=== PATIENT | female | born 1995 | race Caucasian/White ===

== ENCOUNTER → 2018-01-04 16:28 | Outpatient (CLI) | payer MEDICAID, SELFPAY ==
[2018-01-04 19:54] LABS: Chlamydia Trachomatis by PCR Negative (Negative); Neisserai gonorrhoeae by PCR Negative (Negative); Probe Check PASS; Sample Adequacy Control PASS; Specimen Processing Control PASS
[2018-01-08 14:14] LABS: HPV Reflexed? NOT INDICATED
== END ==
PROVIDERS: Visit Provider Obstetrics & Gynecology
DX: Z12.4 Encounter for screening for malignant neoplasm of cervix (principal); Z11.3 Encounter for screening for infections with a predominantly sexual mode of transmission
CPT/HCPCS: 87491; 87591; 88175; G0145

== ENCOUNTER → 2019-12-26 14:24 | Outpatient (CLI) | payer MEDICAID, SELFPAY ==
[2017-03-19 23:46] VITALS: BMI 45.6
[2019-12-26 16:08] LABS: Absolute Lymphocyte Count 3.28 X10^3/uL (0.83-4.51); Absolute Neutrophil Count 9.9 X10^3/uL (2.0-7.7); Basophil# 0.02 X10^3/uL; Basophil% 0.1 % (0-1); Eosinophil# 0.11 X10^3/uL; Eosinophils% 0.8 % (0-5); Hematocrit 35.9 % (37-47); Hemoglobin 12.3 g/dL (12.0-15.0); Lymphocyte # 3.28 X10^3/ul (4.0); Lymphocyte % 22.8 % (19-41); Mean Corp Hgb Conc 34.3 g/dL (32-36); Mean Corpuscular Hgb 28.7 pg (27.0-32.0); Mean Corpuscular Volume 83.7 fL (81-99); Mean Platelet Vol. 11.4 fl (6.2-12.0); Monocyte# 0.97 X10^3/uL; Monocyte% 6.8 % (0-10); NRBC Flagged by Analyzer 0 % (0-5); Neutrophil # 9.92 X10^3/uL (2.7-7.7); Platelet Count 244 K/mm3 (150-450); RBC Distribution Width CV 14.6 % (11.6-14.6); RBC Distribution Width SD 42.6 fl (35.1-43.9); Red Blood Count 4.29 M/mm3 (4.2-5.4); White Blood Count 14.4 K/mm3 (4.4-11.0)
[2019-12-26 16:27] LABS: Color, Urine Yellow (Yellow); Glucose, Dipstick Normal (Normal); Ketone-Dipstick 5 mg/dl (Negative); Leukocyte Esterase-Dipstick Negative /ul (Negative); Nitrite-Dipstick Negative (Negative); Occult Blood-Urine Negative /ul (Negative); Protein-Dipstick 15 mg/dl (Negative); Specific Gravity, Urine 1.025 (1.002-1.030); Urine Bilirubin Dipstick Negative (Negative); Urine Clarity Sl. Cloudy (Clear); Urine Urobilinogen 1 mg/dl (Normal)
[2019-12-26 16:49] LABS: ALB/GLOB Ratio 0.8 RATIO (0.9-2.4); AST(SGOT) 10 U/L (15-37); Alanine Aminotransfer ALT/SGPT 22 U/L (13-56); Albumin, Serum 3.3 g/dL (3.2-5.0); Alkaline Phosphatase 57 U/L (45-117); Anion Gap 5 (5-15); BUN 7 mg/dL (7-18); BUN/Creat Ratio 12.5 RATIO (10-20); Calcium,Total 9.1 mg/dL (8.5-10.1); Chloride 109 mmol/L (98-107); Creatinine, Serum 0.56 mg/dL (0.55-1.02); EST Glomerular Filtration Rate 141 mL/min (>60); Est Glom Filt Rate - Afr Amer 171 mL/min (>60); Globulin 4.4 g/dL (2.2-4.2); Glucose 96 mg/dL (74-106); LDH 115 U/L (84-246); Potassium 3.9 mmol/L (3.5-5.1); Protein, Total 7.7 g/dL (6.4-8.2); Sodium Level 136 mmol/L (136-145)
[2019-12-26 16:53] LABS: Protein, Urine (Random) 13.3 mg/dL (<11.9); Protein:Creat Ratio 74 mg/g CRE (0-200)
[2019-12-26 17:25] LABS: HIV - WCH Non-Reactive (Nonreactive); Hepatitis B Surface Antigen Non-Reactive (Nonreactive); Hepatitis C Antibody Non-Reactive (Nonreactive); Rubella IgG 18.3 IU/mL
[2019-12-28 06:28] LABS: Prenatal RPR NONREACTIVE (NONREACTIVE)
[2019-12-29 03:07] LABS: Chlamydia By Nucleic Acid AMP Negative (Negative)
[2019-12-29 04:20] LABS: Gonococcus By Nucleic Acid AMP Negative (Negative)
[2019-12-29 14:25] LABS: HPV Reflexed? NOT INDICATED
== END ==
PROVIDERS: PCP Family Medicine; Visit Provider Obstetrics & Gynecology
DX: Z34.81 Encounter for supervision of other normal pregnancy, first trimester (principal)
CPT/HCPCS: 36415; 80053; 81002; 82570; 83615; 84156; 85025; 86703; 86762; 86803; 87340; 87491; 87591; 88175; G0145

== ENCOUNTER → 2020-02-29 16:02 | Outpatient (CLI) | payer MEDICAID, SELFPAY ==
[2017-03-19 23:46] VITALS: BMI 45.6
[2020-02-29 17:37] LABS: Glucose Challenge Gest 1H 50g 97 mg/dL (70-140)
[2020-02-29 17:39] LABS: Hematocrit 34.6 % (37-47); Hemoglobin 11.2 g/dL (12.0-15.0); Mean Corp Hgb Conc 32.4 g/dL (32-36); Mean Corpuscular Hgb 27.8 pg (27.0-32.0); Mean Corpuscular Volume 85.9 fL (81-99); Mean Platelet Vol. 11.5 fl (6.2-12.0); Platelet Count 285 K/mm3 (150-450); RBC Distribution Width CV 14.8 % (11.6-14.6); RBC Distribution Width SD 46.5 fl (35.1-43.9); Red Blood Count 4.03 M/mm3 (4.2-5.4); White Blood Count 13.5 K/mm3 (4.4-11.0)
== END ==
PROVIDERS: PCP Family Medicine; Visit Provider Obstetrics & Gynecology
DX: O99.212 Obesity complicating pregnancy, second trimester (principal); E66.9 Obesity, unspecified; Z3A.00 Weeks of gestation of pregnancy not specified
CPT/HCPCS: 36415; 82950; 85027

== ENCOUNTER → 2020-05-23 | Outpatient (CLI) | payer MEDICAID, SELFPAY ==
[2017-03-19 23:46] VITALS: BMI 45.6
== END | disposition home or self-care (01) ==
PROVIDERS: Visit Provider Obstetrics & Gynecology
DX: Z36.85 Encounter for antenatal screening for Streptococcus B (principal)
CPT/HCPCS: 87077; 87081; 87186

== ENCOUNTER 2020-06-04 07:25 | Inpatient (IN) | payer MEDICAID, SELFPAY ==
[2017-03-19 23:46] VITALS: BMI 45.6
[2020-06-04] VITALS (23 sets, daily range): BP systolic 116–137; BP diastolic 59–86; PULSE 77–100; RESP 16–18; TEMP 36.1–37.6; O2SAT 96–100; BMI 57.4
[2020-06-04] MEDS: Lactated Ringers 1,000 ML 50 ML IV ×2 (08:20→17:58)
[2020-06-04 08:44] LABS: Absolute Lymphocyte Count 3.12 X10^3/uL (0.83-4.51); Absolute Neutrophil Count 8.5 X10^3/uL (2.0-7.7); Basophil# 0.03 X10^3/uL; Basophil% 0.2 % (0-1); Eosinophil# 0.11 X10^3/uL; Eosinophils% 0.9 % (0-5); Hematocrit 37.7 % (37-47); Hemoglobin 12.5 g/dL (12.0-15.0); Lymphocyte # 3.12 X10^3/ul (4.0); Lymphocyte % 24.8 % (19-41); Mean Corp Hgb Conc 33.2 g/dL (32-36); Mean Corpuscular Hgb 27.3 pg (27.0-32.0); Mean Corpuscular Volume 82.3 fL (81-99); Mean Platelet Vol. 10.7 fl (6.2-12.0); Monocyte# 0.81 X10^3/uL; Monocyte% 6.4 % (0-10); NRBC Flagged by Analyzer 0 % (0-5); Neutrophil # 8.47 X10^3/uL (2.7-7.7); Neutrophil % 67.4 % (47-70); Platelet Count 296 K/mm3 (150-450); RBC Distribution Width CV 15.3 % (11.6-14.6); RBC Distribution Width SD 46.3 fl (35.1-43.9); Red Blood Count 4.58 M/mm3 (4.2-5.4); White Blood Count 12.6 K/mm3 (4.4-11.0)
--- NOTE | 2020-06-04 09:22 | PCM.HPOB.BLA ---
History and Physical Chief complaint: Induction of labor chronic hypertension History of present illness: 24-year-old G1, P0 at 30 weeks and 4 days with [facility]: 06/14/2019 1 x 16-week ultrasound arrives for induction of labor for chronic hypertension. Denies headache, chest pain, shortness of breath, nausea vomiting, visual changes, right upper quadrant pain. Patient states good movement. is complicated by chronic hypertension on no meds, smoker, FOB with muscular dystrophy FOB's daughter with clubfoot, IUGR at [place] 2683 g less than 10th percentile HC 5.3% AC 12.2% but MFM ultrasound AGA, asthma, GBS positive Obstetric history: G1: Current Past medical history: Anxiety, asthma, chronic hypertension Medications: vitamin, aspirin Allergies: Latex, Delsym, Mucinex Past surgical history: None Social history: Smoker, denies alcohol, THC use Family history: Denies history of DVT or PE Review of systems: Besides the above pertinent positive a full review of systems is negative Physical exam: Vital Signs Temp Pulse BP 06/04/20 09:12 100 117/69 06/04/20 08:16 98.2 F 06/04/20 08:09 99.7 F H 99 128/74 H 06/04/20 08:02 99.3 F H General: Normal-appearing no acute distress HEENT: Normocephalic atraumatic no cervical of adenopathy Cardiac: Regular rate and rhythm no murmurs rubs or gallops Respiratory: Clear to auscultation bilaterally no wheeze rales or crackles Abdomen: Soft, nontender, gravid Pelvic exam: Closed cervix on last cervical exam Bedside ultrasound: Cephalic presentation Extremities: No peripheral edema normal peripheral pulses Psych: Normal affect normal demeanor nonpressured speech Mom's Microbiology 06/04/20 08:20 Mucosa - Nose SARS-CoV-2 Antigen (Rapid) - Final Mom's Labs & Results 06/04/20 06/04/20 08:30 08:30 WBC 12.6 H RBC 4.58 Hgb 12.5 Hct 37.7 MCV 82.3 MCH 27.3 MCHC 33.2 RDW Std Deviation 46.3 H RDW Coeff of Phoebe 15.3 H Plt Count 296 MPV 10.7 Immature Gran % (Auto) 0.300 Neut % (Auto) 67.4 Lymph % (Auto) 24.8 [place] % (Auto) 6.4 Eos % (Auto) 0.9 Baso % (Auto) 0.2 Absolute Neuts (auto) 8.5 H Absolute Lymphs (auto) 3.12 Nucleated RBC % 0 Blood Type Pending Antibody Screen Pending Labs Blood Type: O RH: POSITIVE RPR/VDRL/Syphilis Nonreactive HbSAg Negative Date Done: 12/26/19 Chlamydia Negative Gonorrhea Negative HIV/AIDS Non-Reactive Group B Strep: Positive Assessment plan: Is a 24-year-old G1, P0 at 30 weeks and 4 days for induction of labor via Cytotec for chronic hypertension -[facility] -Cytotec 25 mcg PV -GBS positive start penicillin at time of rupture or cervical dilation greater than 6 cm -Anesthesia to see -Routine orders
[2020-06-04] MEDS: miSOPROStol 25 MCG TABLET VAGINAL (09:51)
[2020-06-04 10:17] LABS: Amphetamine Urine VISTA NEGATIVE (<1000 ng/mL); Barbiturate Urine VISTA NEGATIVE (< 200 ng/mL); Benzodiazepine Urine VISTA NEGATIVE (< 200 ng/mL); Cocaine Urine VISTA NEGATIVE (< 300 ng/mL); Ecstacy Urine VISTA NEGATIVE (< 500 ng/mL); Methadone Urine VISTA NEGATIVE (< 300 ng/mL); PCP Urine VISTA NEGATIVE (< 25 ng/mL); THC Urine VISTA NEGATIVE (< 50 ng/mL); Vista UDS pH Range 5
[2020-06-04] MEDS: Lactated Ringers 500 ML 999 ML IV (15:43)
--- NOTE | 2020-06-04 17:56 | PN.OBGYN_ITS ---
Subjective: Patient with back pain uncomfortable in bed. Feeling very anxious and discouraged with difficulty monitoring baby and lack of progression with dila tion. - Physical Exam Vitals/I&O's: Vital Signs Temp Pulse BP Pulse Ox 97.9 F 93 137/82 H 99 06/04/20 17:02 06/04/20 17:02 06/04/20 17:02 06/04/20 13:32 Weight: 377 lb 6.4 oz Body Mass Index (BMI) 57.4 General: Alert, Oriented x3, Cooperative, No apparent distress HEENT: Atraumatic, PERRLA, Normocephalic Oral: Moist Mucosa Neck: Supple Abdomen: Soft, Non Tender Extremities: No clubbing, No cyanosis Neurological: Neuro grossly intact Psych/Mental Status: Normal Affect, Appropriate, Alert and oriented to time, place, person, mood and affect Microbiology Past 72 Hours 06/04/20 08:20 Mucosa - Nose SARS-CoV-2 Antigen (Rapid) - Final Laboratory Results 06/04/20 08:30: WBC 12.6 H, RBC 4.58, Hgb 12.5, Hct 37.7, MCV 82.3, MCH 27.3, MCHC 33.2, RDW Std Deviation 46.3 H, RDW Coeff of Phoebe 15.3 H, Plt Count 296, MPV 10.7, Immature Gran % (Auto) 0.300, Neut % (Auto) 67.4, Lymph % (Auto) 24.8, [place] % (Auto) 6.4, Eos % (Auto) 0.9, Baso % (Auto) 0.2, Absolute Neuts (auto) 8.5 H, Absolute Lymphs (auto) 3.12, Nucleated RBC % 0 06/04/20 08:30: Blood Type O POSITIVE, Antibody Screen NEGATIVE 06/04/20 09:00: Urine Opiates Screen NEGATIVE, Urine Methadone Screen NEGATIVE, Ur Barbiturates Screen NEGATIVE, Ur Phencyclidine Scrn NEGATIVE, Ur Amphetamines Screen NEGATIVE, U Methamphetamin-MDMA NEGATIVE, U Benzodiazepines Scrn NEGATIVE, Urine Cocaine Screen NEGATIVE, U Cannabinoids Screen NEGATIVE, Ur Drug Screen Comment Current Medications Acetaminophen (Acetaminophen 500 Mg Tablet) 500 - 1,000 mg PO Q6H PRN PRN PRN Reason: Pain Score 1-3 Al Hydroxide/Mg Hydroxide (Mag Hydrox/Al Hydrox/Simeth 30 Ml Udc) 15 - 30 ml PO Q4H PRN PRN PRN Reason: INDIGESTION Citric Acid/Sodium Citrate (Sodium Citrate/Citric Acid 30 Ml Udc) 30 ml PO X1 PRN PRN Reason: Section Fentanyl Citrate (Fentanyl 100 Mcg/2 Ml Ampul) 25 - 50 mcg IV Q2H PRN PRN PRN Reason: Pain Score 4-10 Lactated Ringer's () 500 mls @ 999 mls/hr IV .Q31M PRN PRN Reason: Epidural Last Admin: 06/04/20 15:43 Dose: 999 mls/hr Documented by: Lactated Ringer's () 500 mls @ 999 mls/hr IV .Q31M PRN PRN Reason: Corrective Measures Lactated Ringer's () 1,000 mls @ 50 mls/hr IV .Q20H [facility] Last Admin: 06/04/20 08:20 Dose: 50 mls/hr Documented by: Penicillin G Potassium 5 mu/ (Sodium Chloride) 105 mls @ 150 mls/hr IV X1 ONE Stop: 06/04/20 09:51 Penicillin G Potassium/Dextrose (Penicillin G Potassium) 3 mu in 50 mls @ 100 mls/hr IV Q4H [facility] Misoprostol (Misoprostol 50 Mcg Tablet) 50 mcg VAGINAL Q6H [facility] Last Admin: 06/04/20 14:00 Dose: Not Given Documented by: Nystatin (Nystatin Powder 15gm Bottle) 1 applic TOPICAL BID RUBEN; Protocol Ondansetron HCl (Ondansetron 4 Mg/2 Ml Vial) 4 mg IV Q4H PRN PRN PRN Reason: NAUSEA Prochlorperazine Edisylate (Prochlorperazine 10 Mg/2 Ml Vial) 10 mg IV Q6H PRN PRN PRN Reason: NAUSEA Sodium Chloride (0.9% Saline Lock 10 Ml Syringe) 10 - 40 ml IV X1 PRN PRN Reason: SALINE FLUSH Medical Necessity - Tobacco Use Smoking Status: Light Smoker (<10/day) Assessment/Plan Seen and examined. Since arrival difficulty with external monitoring. Overall category 1 tracing. Status post 1 dose of vaginal Cytotec. Cervical exam currently closed thick and high. Based on cervical exam Santos bulb not possible. Therefore cannot place scalp electrode. Would need to continue with Pitocin or Cytotec induction. Based on these findings discussed with patient at length about induction options and need to have monitoring. Patient states understanding overall with back discomfort overall psychological emotional stress of not being able to monitor the baby and her not being able to get sleep or rest from all the manipulation from external monitors patient elects for primary section. Educated on high risk for surgical site infection and DVT. Patient states understanding. Discussed risk benefits alternatives. Patient understands the risk of the procedure include but are not limited to visceral or vascular injury, prolonged hospitalization, blood loss need for transfusion, reoperation. Patient understand and wish proceed. All questions answered consent was signed. Overall patient is a medically indicated induction therefore home-going is not an option. Understand patient's request and patient also appears to understand the risks of the procedure. We will proceed with primary section. 3 g of Ancef to be given. Anesthesia to see
[2020-06-04] MEDS: Acetaminophen 500 MG Tablet PO (19:00)
--- NOTE | 2020-06-04 21:52 | PCM.OPRPT ---
Delivery military police officer: Alexus Brown Date of Procedure: 06/04/20 Pre-Operative Diagnosis: Elective Post-Operative Diagnosis: Elective Description of Procedure: Surgeon: Benjamin Fischer MD Anesthesia: Spinal EBL: 600 cc IV fluids: 500 cc Urine output: 200 cc Complications: None Specimen: None Findings: Male in vertex position. Apgars 8/9. Normal uterus, tubes, and ovaries Consent: Patient arrived for induction of labor with chronic hypertension, given Cytotec x1. As noted in decision to incision note previously made difficulty with external monitoring patient with anxiety and exhaustion and after risk benefits alternatives discussion elected for primary section. Patient understood the risk of the procedure include but are not limited to visceral or vascular injury, prolonged hospitalization, blood loss need for transfusion, reoperation. Patient state understanding and wished to proceed. All questions were answered consent was signed Procedure: Patient was brought back to the OR where spinal anesthesia found to be adequate. 3 g of Ancef were given for infection prophylaxis. Patient was prepared and draped in dorsal supine position with leftward tilt. A Pfannenstiel incision was made at the skin with a scalpel. The incision was carried down to the fascia with a scalpel. The fascia was excised and extended laterally. Inferior aspect of the fascia was grasped with a clamp and the underlying rectus and pyramidalis muscle dissected off sharply with Vigil scissors. In a similar fashion superior aspect was grasped with a clamp and the underlying rectus muscle dissected off sharply. Rectus muscle was dissected at the midline. Peritoneum was entered bluntly. Peritoneum was extended superiorly and inferiorly with good visualization of bladder. Bladder blade was inserted and vesicouterine peritoneum was identified. Low transverse hysterotomy incision was made. Extended laterally. Hand was placed into the hysterotomy and gentle fundal pressure was applied once the head was brought into the incision and the bladder blade was removed. Head and shoulders were delivered with ease. Cord was cut and clamped baby was handed off to nursing. Placenta was delivered via manual extraction. Uterus was exteriorized and wiped out with dry laparotomy sponge in order to remove remaining placental membranes. IV oxytocin was initiated in order to facilitate uterine contractions. Uterus was closed in a continuous running locked fashion. Second layer was performed. Good hemostasis was noted. Uterus placed back into the abdominal cavity. Incision was reinspected and good hemostasis was noted. Fascia was closed in continuous running fashion. Skin was closed in a subcuticular fashion. All counts were correct x2. Patient tolerated the procedure well was brought to recovery in stable condition.
--- NOTE | 2020-06-04 21:59 | DCINST_ITS ---
Discharge Diet: No Restrictions Discharge Activity: May Drive, May Shower, - - No tub baths for 2 weeks May resume sexual activity in: 6 weeks Lifting Restrictions: No lifting over 25 pounds for 3 weeks Call your doctor if your incision/area has: Foul Smelling Discharge Call your doctor if you observe: Fever of 101 or Higher, Shortness of breath, Chest pain Additional Instructions: If you experience any of the following, contact your healthcare provider. * Bleeding that soaks a pad every hour for 2 hours * Fever 100.4 or higher * Unrelieved incision or abdominal pain * Swelling, redness, discharge or bleeding from your incision or episiotomy site * Your incision begins to separate * Problems urinating (including inability to urinate or burning while urinating). * Visual changes * Severe headache * Flu-like symptoms * Pain or redness in one of both of your breasts * Pain, warmth, tenderness or swelling in your legs, especially the calf area * Frequent nausea and vomiting * Symptoms of depression or anxiety If you experience any of the following, call 911 or go to the nearest Emergency Room. * Chest pain * Problems breathing * Seizure activity * Partial or complete paralysis of a body part, slurred speech, weakness or drooping of the face, or a sudden inability to walk or hold your balance Allergies/Adverse Reactions: Allergies dextromethorphan [From Delsym] Allergy (Verified 03/19/17 23:48) HEADACHE HEART RACES AND THROWS ME INTO A PANIC ATTACK guaifenesin [From Mucinex] Allergy (Verified 03/19/17 23:48) Angioedema latex Allergy (Verified 03/19/17 23:48) Rash Medications to take at Discharge Albuterol Inhaler 2 puff INHALATION Q8H PRN PRN 06/04/20 Vit No.130/Iron/Folic [ Tablet] 1 ea PO DAILY 06/04/20 Hydrocodone Bitart/Apap 5-325 [[place] 5MG-325MG] 1 tablet PO Q6H PRN PRN 3 Days #12 tablet 06/06/20 The following prescriptions were given: Hydrocodone Bitart/Apap 5-325 [[place] 5MG-325MG] 1 tablet PO Q6H PRN PRN 3 Days #12 tablet PRN Reason: Pain Score 6-10 Transmission Status: Received by [facility] Follow-Up: Call to make an appointment with your doctor for an incision check in 1-2 weeks. You will also need a 6 week post- follow up appointment. Test results from this visit will be discussed in further detail at your follow- up appointment, if applicable. Please Follow Up With: Benjamin Fischer MD When: 2 weeks Primary Care Physician: Care Physician,No Primary [Primary Care Provider] -
[2020-06-04] MEDS: Oxytocin 30 units/NS 500 ml 30 UNITS/500 ML IV.SOLN 167 UNITS IV (22:00)
[2020-06-05] VITALS (8 sets, daily range): BP systolic 113–146; BP diastolic 71–94; PULSE 81–98; RESP 16–20; TEMP 36.1–36.6; O2SAT 96–99
[2020-06-05] MEDS: Lactated Ringers 1,000 ML 100 ML IV (00:26)
[2020-06-05] MEDS: Acetaminophen 500 MG Tablet 1000 MG PO ×4 (01:21→19:21)
[2020-06-05] MEDS: Nystatin Powder 15gm Bottle 1 APPLIC TOPICAL ×3 (03:04→21:37)
[2020-06-05] MEDS: 0.9% Saline Lock 10 ML Syringe IV ×4 (03:39→15:18)
[2020-06-05] MEDS: Ketorolac 30 MG/ML Syringe IV ×4 (03:39→20:47)
[2020-06-05 05:03] LABS: Hematocrit 34.5 % (37-47); Hemoglobin 11.3 g/dL (12.0-15.0); Mean Corp Hgb Conc 32.8 g/dL (32-36); Mean Corpuscular Hgb 27.8 pg (27.0-32.0); Mean Corpuscular Volume 84.8 fL (81-99); Mean Platelet Vol. 10.4 fl (6.2-12.0); Platelet Count 253 K/mm3 (150-450); RBC Distribution Width CV 15.3 % (11.6-14.6); RBC Distribution Width SD 46.9 fl (35.1-43.9); Red Blood Count 4.07 M/mm3 (4.2-5.4); White Blood Count 14.8 K/mm3 (4.4-11.0)
--- NOTE | 2020-06-05 08:42 | PN.OBGYN_ITS ---
Subjective: No issues overnight. She is sore, but pain controlled. OOB to chair. Denies nausea, vomiting, fever, chills, headache, vision changes, chest pain or shortness of breath. Denies heavy lochia. Passing flatus. Tolerates CLD. Objective: avss - Physical Exam Vitals/I&O's: Vital Signs Temp Pulse Resp BP Pulse Ox 97.1 F L 91 16 113/71 96 06/05/20 08:13 06/05/20 08:13 06/05/20 08:13 06/05/20 08:13 06/05/20 08:13 Oxygen Delivery Method Room Air Weight: 171.186 kg Body Mass Index (BMI) 57.4 Intake and Output for Last 24 Hours 06/03/20 06/04/20 06/05/20 23:59 23:59 23:59 Intake Total 1235.84 / 1235.84 879.70 / 879.70 Output Total 400 / 400 375 / 375 Balance 835.84 / 835.84 504.70 / 504.70 General: Alert, Oriented x3, Cooperative, No apparent distress HEENT: Atraumatic, Normocephalic Lungs: Clear to auscultation, Normal air movement Cardiovascular: Regular rate, Regular Rhythm, Normal S1, Normal S2 Abdomen: Soft, Non Tender, Non-Distended, - - Fundus firm and nontender, lochia scant, incisional dressing c/d/i Extremities: No edema, No Calf Tenderness Neurological: Neuro grossly intact Psych/Mental Status: Normal Affect, Appropriate, Alert and oriented to time, place, person, mood and affect Microbiology Past 72 Hours 06/04/20 08:20 Mucosa - Nose SARS-CoV-2 Antigen (Rapid) - Final Laboratory Results 06/04/20 08:30: WBC 12.6 H, RBC 4.58, Hgb 12.5, Hct 37.7, MCV 82.3, MCH 27.3, MCHC 33.2, RDW Std Deviation 46.3 H, RDW Coeff of Phoebe 15.3 H, Plt Count 296, MPV 10.7, Immature Gran % (Auto) 0.300, Neut % (Auto) 67.4, Lymph % (Auto) 24.8, [place] % (Auto) 6.4, Eos % (Auto) 0.9, Baso % (Auto) 0.2, Absolute Neuts (auto) 8.5 H, Absolute Lymphs (auto) 3.12, Nucleated RBC % 0 06/04/20 08:30: Blood Type O POSITIVE, Antibody Screen NEGATIVE 06/04/20 09:00: Urine Opiates Screen NEGATIVE, Urine Methadone Screen NEGATIVE, Ur Barbiturates Screen NEGATIVE, Ur Phencyclidine Scrn NEGATIVE, Ur Amphetamines Screen NEGATIVE, U Methamphetamin-MDMA NEGATIVE, U Benzodiazepines Scrn NEGATIVE, Urine Cocaine Screen NEGATIVE, U Cannabinoids Screen NEGATIVE, Ur Drug Screen Comment 06/05/20 04:48: WBC 14.8 H, RBC 4.07 L, Hgb 11.3 L, Hct 34.5 L, MCV 84.8, MCH 27.8, MCHC 32.8, RDW Std Deviation 46.9 H, RDW Coeff of Phoebe 15.3 H, Plt Count 253, MPV 10.4 Current Medications Acetaminophen (Acetaminophen 500 Mg Tablet) 1,000 mg PO Q6H [facility] Last Admin: 06/05/20 06:37 Dose: 1,000 mg Documented by: Albuterol Sulfate (Albuterol 2.5 Mg/3 Ml Vial.Neb.) 2.5 mg INHALATION Q4H PRN PRN PRN Reason: Asthma Bisacodyl (Bisacodyl 10 Mg Suppository) 10 mg RC UD PRN PRN Reason: If no BM Enoxaparin Sodium (Enoxaparin 40 Mg/0.4 Ml Syringe) 40 mg SC DAILY [facility] Hydrocortisone (Hydrocortisone 2.5% Crm) 1 applic TOPICAL TID PRN PRN; Protocol PRN Reason: Discomfort Cefazolin Sodium 3 gm/ Sodium (Chloride) 115 mls @ 150 mls/hr IV Q8H [facility] Stop: 06/06/20 21:00 Last Infusion: 06/05/20 04:48 Dose: Infused Documented by: Lactated Ringer's () 1,000 mls @ 100 mls/hr IV .Q10H [facility] Last Infusion: 06/05/20 04:48 Dose: 100 mls/hr Documented by: Ibuprofen (Ibuprofen 600 Mg Tablet) 600 mg PO Q6H [facility] Ketorolac Tromethamine (Ketorolac 30 Mg/Ml Syringe) 30 mg IV Q6H [facility] Stop: 06/05/20 21:01 Last Admin: 06/05/20 03:39 Dose: 30 mg Documented by: Nystatin (Nystatin Powder 15gm Bottle) 1 applic TOPICAL BID [facility]; Protocol Last Admin: 06/05/20 03:04 Dose: 1 applic Documented by: Ondansetron HCl (Ondansetron 4 Mg/2 Ml Vial) 4 mg IV Q4H PRN PRN PRN Reason: Nausea Oxycodone HCl (Oxycodone 5 Mg Tablet) 5 - 10 mg PO Q4H PRN PRN PRN Reason: Pain Score 4-10 Multivit/Folic Acid/Iron ( Vits Tablet) 1 tablet PO DAILY [facility] Prochlorperazine Edisylate (Prochlorperazine 10 Mg/2 Ml Vial) 10 mg IV Q6H PRN PRN PRN Reason: NAUSEA Senna/Docusate Sodium (Senna/Docusate Sodium 1 Tablet) 1 - 2 tablet PO DAILY [facility] Simethicone (Simethicone 80 Mg Tablet) 80 mg PO PCHS PRN PRN Reason: Indigestion/stomach pain Sodium Chloride (0.9% Saline Lock 10 Ml Syringe) 5 - 15 ml IV UD PRN PRN Reason: SALINE FLUSH Last Admin: 06/05/20 03:39 Dose: 10 ml Documented by: Medical Necessity - Tobacco Use Smoking Status: Light Smoker (<10/day) Assessment/Plan 24yo POD# 1 s/p PLTCS hx cHTN on no medications -Rh positive -Routine postop care -Lovenox for DVT ppx
[2020-06-05] MEDS: Enoxaparin 40 MG/0.4 ML Syringe SC (11:20)
[2020-06-05] MEDS: Senna/Docusate Sodium 1 Tablet PO (11:20)
[2020-06-05] MEDS: Prenatal Vits Tablet 1 TABLET PO (11:20)
[2020-06-06 01:12] VITALS: BP 126/81; PULSE 79; RESP 16; TEMP 36.6
[2020-06-06] MEDS: Acetaminophen 500 MG Tablet 1000 MG PO ×3 (01:24→12:45)
[2020-06-06] MEDS: Ibuprofen 600 MG Tablet PO ×2 (03:08→09:17)
[2020-06-06] MEDS: 0.9% Saline Lock 10 ML Syringe IV (04:51)
[2020-06-06 08:28] VITALS: BP 120/79; PULSE 88; RESP 18; TEMP 36.3; O2SAT 97
--- NOTE | 2020-06-06 09:05 | PCM.PN.OB ---
Subjective: Complaints overnight. Pain well controlled. - Physical Exam Vitals/I&O's: Vital Signs Temp Pulse Resp BP Pulse Ox 97.4 F L 88 18 120/79 97 06/06/20 08:28 06/06/20 08:28 06/06/20 08:28 06/06/20 08:28 06/06/20 08:28 Oxygen Delivery Method Room Air Weight: 377 lb 6.4 oz Body Mass Index (BMI) 57.4 Intake and Output for Last 24 Hours 06/04/20 06/05/20 06/06/20 23:59 23:59 23:59 Intake Total 1235.84 / 1235.84 1729.70 / 1729.70 115 / 115 Output Total 400 / 400 575 / 575 Balance 835.84 / 835.84 1154.70 / 1154.70 115 / 115 General: Alert, Oriented x3, Cooperative, No apparent distress HEENT: Atraumatic, PERRLA, Normocephalic Oral: Moist Mucosa Neck: Supple, No JVD Abdomen: Soft, Non Tender, - - Bandage clean dry and intact Extremities: No clubbing, No cyanosis Neurological: Neuro grossly intact Psych/Mental Status: Normal Affect, Appropriate, Alert and oriented to time, place, person, mood and affect Microbiology Past 72 Hours 06/04/20 08:20 Mucosa - Nose SARS-CoV-2 Antigen (Rapid) - Final Current Medications Acetaminophen (Acetaminophen 500 Mg Tablet) 1,000 mg PO Q6H [facility] Last Admin: 06/06/20 06:56 Dose: 1,000 mg Documented by: Albuterol Sulfate (Albuterol 2.5 Mg/3 Ml Vial.Neb.) 2.5 mg INHALATION Q4H PRN PRN PRN Reason: Asthma Bisacodyl (Bisacodyl 10 Mg Suppository) 10 mg RC UD PRN PRN Reason: If no BM Enoxaparin Sodium (Enoxaparin 40 Mg/0.4 Ml Syringe) 40 mg SC DAILY [facility] Last Admin: 06/05/20 11:20 Dose: 40 mg Documented by: Hydrocortisone (Hydrocortisone 2.5% Crm) 1 applic TOPICAL TID PRN PRN; Protocol PRN Reason: Discomfort Ibuprofen (Ibuprofen 600 Mg Tablet) 600 mg PO Q6H [facility] Last Admin: 06/06/20 03:08 Dose: 600 mg Documented by: Nystatin (Nystatin Powder 15gm Bottle) 1 applic TOPICAL BID [facility]; Protocol Last Admin: 06/05/20 21:37 Dose: 1 applic Documented by: Ondansetron HCl (Ondansetron 4 Mg/2 Ml Vial) 4 mg IV Q4H PRN PRN PRN Reason: Nausea Oxycodone HCl (Oxycodone 5 Mg Tablet) 5 - 10 mg PO Q4H PRN PRN PRN Reason: Pain Score 4-10 Multivit/Folic Acid/Iron ( Vits Tablet) 1 tablet PO DAILY [facility] Last Admin: 06/05/20 11:20 Dose: 1 tablet Documented by: Prochlorperazine Edisylate (Prochlorperazine 10 Mg/2 Ml Vial) 10 mg IV Q6H PRN PRN PRN Reason: NAUSEA Senna/Docusate Sodium (Senna/Docusate Sodium 1 Tablet) 1 - 2 tablet PO DAILY [facility] Last Admin: 06/05/20 11:20 Dose: 1 tablet Documented by: Simethicone (Simethicone 80 Mg Tablet) 80 mg PO PCHS PRN PRN Reason: Indigestion/stomach pain Sodium Chloride (0.9% Saline Lock 10 Ml Syringe) 5 - 15 ml IV UD PRN PRN Reason: SALINE FLUSH Last Admin: 06/06/20 04:51 Dose: 5 ml Documented by: Medical Necessity - Tobacco Use Smoking Status: Light Smoker (<10/day) Assessment/Plan Postop day 2 status post primary . Okay to discharge home today
[2020-06-06] MEDS: Enoxaparin 40 MG/0.4 ML Syringe SC (10:00)
[2020-06-06] MEDS: Prenatal Vits Tablet 1 TABLET PO (10:00)
[2020-06-06] MEDS: Nystatin Powder 15gm Bottle 1 APPLIC TOPICAL (10:02)
[2020-06-06 14:00] VITALS: BP 136/81; PULSE 83; RESP 18; TEMP 36; O2SAT 99
--- NOTE | 2020-06-06 14:30 | CASEMGMT ---
Social Work Assessment Labor and Delivery Unit Patient Address: [address] [place] [address] Phone number: [phone] Date of Referral: 06/05/2020 Time of Referral: 329 Referred By: Dr. Benjamin Fischer Date of Intervention: 06/06/2020 Time of Intervention: 9853-1383 Reason for Referral: Mental health, maternal history of bipolar disorder and anxiety. History obtained from: Medical records and mother of baby (MOB) Annalisa Wills, father of baby (FOB) Tani Morgan also present for part of conversation. Household composition: MOB reports to live with the FOB. Reports home situation is safe and adequate. Patient's parent/guardian status: MOB is a 23-year-old single female involved with the FOB who is a single 27-year-old and [place] male. Together for 4 years. During private conversation with the MOB, the MOB denies any form of abuse, control, intimidation in this relationship. baby is the first child for MOB and FOB together. FOB reports to have one other child named Jesus Alberto who is 6 years old. FOB does not see this child. MOB and FOB's baby is to be named Eric Wills, born 06.04.2019. Medical History: ANNI is 1, para 0-1 after delivering Eric. care started at 18 weeks gestation. Mckenzie delivered at 38 weeks gestation. Apgars 8 and 9 at 1 and 5 minutes of life respectively. weight was 6 pounds 10 ounces. Significant medical history for the : On the baby's paternal side of the family there is significant medical history including the FOB having muscular dystrophy, a paternal aunt with muscular dystrophy, and the half sibling born with a clubfoot and hip dysplasia. Educational Status: ANNI reportedly working on her GED. MOB reports to be able to read, write, and understand what is read. Financial Status: MOB was working at [employer] for part of the . ANNI is not currently employed. The FOB does receive disability which is the main source of income for the household. Supplies: MOB and FOB report to have needed infant supplies including a bassinet, car seat, clothing, diapers, wipes, bottles, and formula. MOB reports they have a crib they just have to go pick it up. Childcare/Caregiver(s): MOB and FOJessica plan to be the primary caregivers. Transportation: ANNI reports she relies on her father for transportation. Programs/Agencies Involved: ANNI reports to have food and medical through job and family services. Active with WIC. Reports to have counseling at the counseling center one time a week. Verbally agrees to help me grow referral. Children Services/Legal Issues: ANNI denies any legal issues for herself. The FOB reports to be a registered sex offender for 25 years. The FOB reports he served chcf time and finished his probation/parole, no longer on papers. No history reported of children services related to the MOB. Behavioral Health Issues: Mental Health History: ANNI has a history of bipolar disorder, anxiety and depression. ANNI has a history of treatment with Seroquel and gabapentin but is not currently taking any medications. ANNI prefers not to take medications. [place] depression screen completed with that MOB this date and a score was 2. ANNI denies any history of suicidal or homicidal ideation, intent, planning or action. Substance Use History: MOB reports a history of marijuana use until knowledge and then immediately quit. MOB denies any other substance use history including heroin, meth, cocaine, prescription abuse, or alcohol. MOB does smoke tobacco going from about a half a pack to 3 cigarettes a day. Family History: MOB family history not discussed. The FOB does have history of depression. JIAN reports also to have his own medical marijuana card. Drug Screens: No drug screens noted during the MOB . Maternal drug screen at time of delivery was negative on 06/04/2020. Baby's urine drug screen is negative at delivery and meconium is pending. Family/Social Stressors: MOB and FOB report that the FOB sister was murdered in April, which has been a significant stress for the entire family. JIAN's niece and nephews are now living with grandparents and [facility] children services is involved. with [facility] unplanned but accepted. Maternal mental health history, as well as JIAN's grief from the loss of his sister. Reported materanl substance use prior to knowledge. JIAN does have muscular dystrophy, and reports he has been losing the use of his legs and is mostly in a wheelchair now. Support Systems: It is reported that FOB's mom, MOB father, and aunt, and even the landlord are all supports. Depression/Shaken Baby/Safe Sleeping: Educated to safe sleeping and shaken baby prevention. Educated to mood and anxiety disorders, risk factors present, and importance of self-care and follow-up if symptoms arise or become distressing. ASSESSMENT: Met with the MOB and FOB in room together. Both receptive to having social work visit. MOB and FOB report to have needed supplies to care for the baby, and reports to have a support system to help if needed. MOB reports the plan may actually be to go and stay with the MOB father in [place], [place] to provide some additional support to the MOB with the baby, due to the FOB mostly being in a wheelchair. At time of discharge however they plan to return their own home and have local support from other family members. MOB reports intent to continue with counseling at the counseling center. Through discussion the FOB acknowledged that counseling may be beneficial for himself and verbally agreed to make his own appointment. During the assessment the MOB was polite, answered questions, although at times would make comments about the baby, or off topic when the FOB was in the middle of talking of his own emotional concerns. The FOB, when talking, cried most of the time and required redirection at times. Observed MOB to care for the baby, and MOB was appropriate. MOB did hand baby off to the father at 1 point and observe the FOB to hold the baby to the FOB's chest. FOB did appear drowsy and sleepy slouched down in his wheelchair with eyes closed when holding the baby. When this ticket writer would speak to the FOB however, the FOB would open his eyes. When the baby started fussing the MOB took the baby back. FOB discussed that he was told by someone that children services has been called and is giving custody to the MOB's father. Informed the parents that this ticket writer was not aware of children services being called at this point, but that any change of custody goes through a process and children services would first want to speak with the parents prior to making a decision on the need for change of custody. Did let the parents know however that children services may end up following with the family to ensure that things are going well at home and the parents have what they need to care for the baby. Safe Plan of Care for infant related to substance use: Continued abstinence of substances. MOB reports awareness that breast-feeding and marijuana use are not recommended. FOB does have a medical marijuana card and discussed keeping any thing pertaining to the medical card blocked up and out of the reach of children. Also discussed having a sober person around and caring for the baby should FOB continue to use his medical marijuana card. PLAN: MOB and infant to discharge when ready. Provided parents with [facility] resource list in a packet on mood and anxiety disorders. Help me grow referral to be made. Plan to [facility] children services due to concerns of intrauterine exposure to substances and other social issues in his family. -KAIRSSA Whaley, STATIONARY ENGINEER REFRIGERATION *Information documented in this assessment generated with [employer] System
--- NOTE | 2020-06-07 14:00 | CASEMGMT ---
Social Work Labor and Delivery Unit Called [facility] ([facility]) this date. Referral to Lori Mcdowell at [phone], extension [phone]. Referral due to reports by the MOB of marijuana use during , until knowledge, with PNC not starting until 18 weeks gestation. Additional concerns include that FOB is a registered sex offender and uncertain on whether there are truly any restrictions from this legal status, FOB's limited physical functioning, FOB's medical marijuana card, maternal mental health history and concern for FOB's current coping and emotional status. Brief maternal and infant histories provided. Let [facility] know that family discharged home on 06.06.2020. Plan to make a Help Me Grow referral. Monitor for meconium drug screen results. -DANE Whaley, FRANCHISE FIELD CONSULTANT
--- NOTE | 2020-06-11 09:32 | CASEMGMT ---
Social Work Labor and Delivery unit Help me grow referral submitted through the [facility] assisted care web-based referral system. [] No other services requested or indicated. -DANE Whaley, HOSPITAL SUPERVISOR. *Information documented in this note generated via [employer] system*
== END 2020-06-06 16:05 | disposition home or self-care (01) | DRG 540 ==
PROVIDERS: Obstetrics & Gynecology; Admitting Provider Obstetrics & Gynecology; Referring Provider Obstetrics & Gynecology; Visit Provider Obstetrics & Gynecology
DX: O62.0 Primary inadequate contractions (principal); O10.92 Unspecified pre-existing hypertension complicating childbirth; O36.5930 Maternal care for other known or suspected poor fetal growth, third trimester, not applicable or unspecified; O75.81 Maternal exhaustion complicating labor and delivery; O99.824 Streptococcus B carrier state complicating childbirth; O99.52 Diseases of the respiratory system complicating childbirth; J45.909 Unspecified asthma, uncomplicated; O99.334 Smoking (tobacco) complicating childbirth; F17.200 Nicotine dependence, unspecified, uncomplicated; Z3A.38 38 weeks gestation of pregnancy; Z37.0 Single live birth
CPT/HCPCS: 59025; 59050; 76815; 80307; 85025; 85027; 86850; 86900; 86901; 87426; 99218; J7120; A4216; G0378; J2405